=== PATIENT | male | born 1965 | race Caucasian/White ===

== ENCOUNTER 2023-11-21 14:34 | Emergency (ER) | payer MEDICAID ==
[2023-11-21 15:29] LABS: BASOPHILS ABSOLUTE AUTO 0.02 K/uL (0.02-0.10); BASOPHILS PERCENT AUTO 0.4 % (0.0-0.5); EOSINOPHILS ABSOLUTE AUTO 0.06 K/uL (0.04-0.40); EOSINOPHILS PERCENT AUTO 1.2 % (1.0-5.0); HEMATOCRIT 43.3 % (40.0-54.0); HEMOGLOBIN 14.8 g/dL (13.0-18.0); LYMPHOCYTES ABSOLUTE AUTO 1.28 K/uL (1.50-4.00); LYMPHOCYTES PERCENT AUTO 25.2 % (20.0-40.0); MEAN CORPUSCULAR HEMOGLOBIN 29.8 pg (27.0-32.0); MEAN CORPUSCULAR HGB CONC 34.2 g/dL (31.0-35.0); MEAN CORPUSCULAR VOLUME 87 fL (76-96); MEAN PLATELET VOLUME 9.1 fL (6.0-10.0); MONOCYTES ABSOLUTE AUTO 0.28 K/uL (0.20-0.80); MONOCYTES PERCENT AUTO 5.5 % (3.0-10.0); NEUTROPHILS ABSOLUTE AUTO 3.44 K/uL (2.00-7.50); NEUTROPHILS PERCENT AUTO 67.7 % (45.0-70.0); PLATELET COUNT,PLT 264 K/uL (150-400); RED BLOOD CELL COUNT 4.97 M/uL (4.50-6.50); RED CELL DISTRIBUTION WIDTH 13.5 % (11.0-16.0); WHITE BLOOD CELL COUNT,WBC 5.1 K/uL (4.0-11.0)
[2023-11-21] MEDS: Acetaminophen 325 MG Tab PO ONE (15:48)
[2023-11-21] MEDS: Acetaminophen 325 MG Tab ONE (15:56)
[2023-11-21 15:58] LABS: A/G RATIO 1.1 (0.8-2.0); BILIRUBIN TOTAL 0.8 mg/dL (0.0-1.0); BUN/CREATININE RATIO 9.6 (6-25); CARBON DIOXIDE,CO2 29.3 mmol/L (21.0-32.0); CREATININE 1.87 mg/dL (0.70-1.30); POTASSIUM,K 3.3 mmol/L (3.5-5.1); PROTEIN TOTAL,TP 7.8 g/dL (6.4-8.2); TSH ULTRASENSITIVE 1.395 uIU/mL (0.358-3.740)
[2023-11-21 16:06] LABS: APPEARANCE,URINE CLEAR (CLEAR); BILIRUBIN,URINE SMALL (NEGATIVE); COLOR,URINE YELLOW; GLUCOSE,URINE NEGATIVE (NEGATIVE); KETONES,URINE NEGATIVE (NEGATIVE); LEUKOCYTE ESTERASE,URINE NEGATIVE (NEGATIVE); NITRITE,URINE NEGATIVE (NEGATIVE); OCCULT BLOOD,URINE NEGATIVE (NEGATIVE); PH,URINE 6.5 (5.0-8.0); PROTEIN,URINE 30 mg/dL (NEGATIVE)
[2023-11-21 16:09] LABS: RBC,URINE 0-5 /HPF; WBC,URINE NOT SEEN /HPF
[2023-11-21 16:10] LABS: AMPHETAMINES SCREEN, URINE NEGATIVE (NEGATIVE); BARBITURATE SCREEN,URINE NEGATIVE (NEGATIVE); BENZODIAZEPINES SCREEN,URINE POSITIVE (NEGATIVE); METHADONE SCREEN, URINE NEGATIVE (NEGATIVE); METHAMPHETAMINES SCREEN, URINE NEGATIVE (NEGATIVE); OXYCODONE SCREEN,URINE NEGATIVE (NEGATIVE); THC SCREEN,URINE 50 NG/ML POSITIVE (NEGATIVE)
[2023-11-21 16:25] VITALS: BP 171/109; PULSE 74
[2023-11-23 19:28] LABS: FOLATE,SERUM 13.5 ng/mL (>=5.9)
== END 2023-11-21 16:36 | disposition home or self-care (01) ==
LOC: LB.ED 14:34
DX: F34.1 Dysthymic disorder (principal); I10 Essential (primary) hypertension; K21.9 Gastro-esophageal reflux disease without esophagitis; Z79.899 Other long term (current) drug therapy; Z88.0 Allergy status to penicillin
CPT/HCPCS: 36415; 80053; 80307; 81001; 82607; 82746; 84443; 85025; 99283; 99284; A9270-GY